=== PATIENT | female | born 1945 | race Caucasian/White ===

== ENCOUNTER 2016-10-01 08:51 | Outpatient (RCR) ==
[2015-06-15 09:19] VITALS: BMI 28.9
[2016-10-26 09:39] VITALS: BP 118/64
== END 2016-10-26 ==
LOC: CAR.REHAB 08:51
PROVIDERS: ATTEND Internal Medicine
DX: I25.10 Atherosclerotic heart disease of native coronary artery without angina pectoris (principal); J44.9 Chronic obstructive pulmonary disease, unspecified
CPT/HCPCS: 93797

== ENCOUNTER 2016-10-27 07:00 | Outpatient (RCR) ==
[2015-06-15 09:19] VITALS: BMI 28.9
[2016-11-23 11:32] VITALS: BP 122/56
== END 2016-11-25 ==
LOC: CAR.REHAB 07:00
PROVIDERS: ATTEND Internal Medicine
DX: I25.10 Atherosclerotic heart disease of native coronary artery without angina pectoris (principal); J44.9 Chronic obstructive pulmonary disease, unspecified
CPT/HCPCS: 93797

== ENCOUNTER 2016-11-26 07:51 | Outpatient (RCR) ==
[2015-06-15 09:19] VITALS: BMI 28.9
[2016-12-21 11:52] VITALS: BP 126/58
== END 2016-12-26 ==
LOC: CAR.REHAB 07:51
PROVIDERS: ATTEND Internal Medicine
DX: I25.10 Atherosclerotic heart disease of native coronary artery without angina pectoris (principal); J44.9 Chronic obstructive pulmonary disease, unspecified
CPT/HCPCS: 93797

== ENCOUNTER 2016-12-27 10:48 | Outpatient (RCR) ==
[2015-06-15 09:19] VITALS: BMI 28.9
[2017-01-21 11:28] VITALS: BP 126/56
== END 2017-01-25 ==
LOC: CAR.REHAB 10:48
PROVIDERS: ATTEND Internal Medicine
DX: I25.10 Atherosclerotic heart disease of native coronary artery without angina pectoris (principal); J44.9 Chronic obstructive pulmonary disease, unspecified
CPT/HCPCS: 93797

== ENCOUNTER 2017-01-28 07:09 | Outpatient (RCR) ==
[2015-06-15 09:19] VITALS: BMI 28.9
[2017-02-25 11:55] VITALS: BP 108/52
== END 2017-02-25 ==
LOC: CAR.REHAB 07:09
PROVIDERS: ATTEND Internal Medicine
DX: I25.10 Atherosclerotic heart disease of native coronary artery without angina pectoris (principal); J44.9 Chronic obstructive pulmonary disease, unspecified
CPT/HCPCS: 93797

== ENCOUNTER 2017-02-26 08:43 | Outpatient (RCR) ==
[2015-06-15 09:19] VITALS: BMI 28.9
[2017-03-08 12:29] VITALS: BP 126/64
== END 2017-03-28 ==
LOC: CAR.REHAB 08:43
PROVIDERS: ATTEND Internal Medicine
DX: I25.10 Atherosclerotic heart disease of native coronary artery without angina pectoris (principal); J44.9 Chronic obstructive pulmonary disease, unspecified
CPT/HCPCS: 93797

== ENCOUNTER 2017-03-29 07:36 | Outpatient (RCR) ==
[2015-06-15 09:19] VITALS: BMI 28.9
== END 2017-04-22 09:46 | disposition home or self-care (01) ==
LOC: CAR.REHAB 07:36
PROVIDERS: ATTEND Internal Medicine
DX: I25.10 Atherosclerotic heart disease of native coronary artery without angina pectoris (principal); Z95.5 Presence of coronary angioplasty implant and graft

== ENCOUNTER 2017-04-10 11:11 | Outpatient (CLI) | payer OTHER ==
[2015-06-15 09:19] VITALS: BMI 28.9
--- NOTE | 2017-04-10 11:50 | DI ---
EXAM: CHEST FRONTAL AND LATERAL VIEWS HISTORY: Chronic obstructive pulmonary disease. COMPARISON: None FINDINGS: Heart size is within normal limits. There is at least mild aortic atherosclerosis. Blackmon otomy wires are noted. There are scattered calcifications suggesting old granulomatous disease. No a cute infiltrates are seen. Mild hyperinflation. No vascular congestion. There is no consolidation, visible pleural fluid or pneumothorax. Bones reveal no acute fracture. IMPRESSION: Mild hyperinflation. No acute cardiopulmonary process.
== END 2017-04-10 11:12 | disposition home or self-care (01) ==
LOC: RAD 11:11
PROVIDERS: ATTEND Internal Medicine
DX: J44.9 Chronic obstructive pulmonary disease, unspecified (principal)

== ENCOUNTER 2017-06-25 06:29 | Outpatient (CLI) ==
[2015-06-15 09:19] VITALS: BMI 28.9
--- NOTE | 2017-06-26 13:41 | ECHO2D ---
Date of Exam: 06/25/17 Ordering Physician: GRABIEL ALEGRIA Room #: OP Reason for Echo: CHEST PAIN, COPD, SOB, CAD M-Mode Normal Adult Results LV Dimensions Normal Adult Results AoV Opening excursions >1.6 >1.6 LVEDD-base- 3.5-5.8 5.3 Ao root dimensions 2.0-3.7 3.3 LVESD-base- 3.1-4.6 L. Atrium dimensions 1.9-3.8 4.6 Post. Wall thickness 0.8-1.1 1.4 IV septum (thickness) 0.7-1.2 1.3 Post. Wall excursion 0.72-1.3 NORMAL Septal motion NORMAL Systolic motion R. Ventricular cavity 1.5-2.0 NORMAL LVEF 60% 55% Paradoxical septal wall motion NORMAL 2-D : 2-D M Mode Echocardiogram was performed using apical four chamber and left parasternal long and short axis views. Mitral, tricuspid and aortic valves appear to be normal. Contractility of the left ventricle seems to be normal, so is the cavity size. Enlarged left atrial cavity. Aortic root appears to be normal. There is no pericardial effusion. There is no thrombus noted in the left ventricular or left aortic cavity. No mitral valve prolapse noted. M-MODE: MV: NORMAL AV: NORMAL TV: NORMAL PV: CHAMBER SIZE: ENLARGED LEFT ATRIAL CAVITY WALL MOTION: NORMAL PERICARDIUM: NORMAL INTERPRETATION: 1. LEFT VENTRICULAR HYPERTROPHY WITH ENLARGED LEFT ATRIAL CAVITY 2. NORMAL LEFT VENTRICULAR CONTRACTILITY 3. NORMAL VALVES 4. MODERATE MITRAL REGURGITATION MTDD
== END 2017-06-25 06:30 | disposition home or self-care (01) ==
LOC: CAR 06:29
PROVIDERS: ATTEND Internal Medicine
DX: R06.02 Shortness of breath (principal); J44.9 Chronic obstructive pulmonary disease, unspecified; I20.9 Angina pectoris, unspecified; I10 Essential (primary) hypertension
CPT/HCPCS: 93005; 93010

== ENCOUNTER 2017-06-26 06:25 | Outpatient (CLI) ==
[2015-06-15 09:19] VITALS: BMI 28.9
[2017-06-26] MEDS ORDERED: DOBUTAMINE 250 ML IV ONE (07:30)
[2017-06-26] MEDS ORDERED: ATROPINE SULFATE PFS ONE (07:30)
--- NOTE | 2017-06-26 11:12 | NM ---
Cardiac Stress Test HISTORY: Angina, shortness of breath, chronic obstructive pulmonary disease, hypertension. Post bypas s 3 years ago. COMPARISON: None of this type. TECHNIQUE: Resting: The patient was injected with 3.5 millicuries of 99m technetium Sestamibi (Cardiolite) intr avenously after which a "resting" SPECT study of the heart was performed. Stress: The patient was stressed pharmacologically with dobutamine and at the appropriate time injec boris with 24.6 millicuries of 99m technetium Sestamibi (Cardiolite) after which a "stress" SPECT study of the heart was performed. Gated images of the heart were also obtained to assess wall motion and c alculate ejection fraction. For details of the stress protocol employed, reference is made to the se [place] report of the performing physician. FINDINGS: The stress perfusion images demonstrate a generally uniform distribution of activity in th e left ventricular myocardium. There is a small region of minimally decreased activity in the distal lateral wall near the apex which appears predominantly fixed. The resting perfusion images demonstra te no evidence of significant redistribution/ischemia. The left ventricular ejection fraction (LVEF) is 69%. The left ventricular wall motion is within normal limits. IMPRESSION: 1. Left ventricular myocardial perfusion demonstrates no evidence of significant ischemia. 2. The left ventricular ejection fraction (LVEF) is 69%. 3. The left ventricular wall motion is within normal limits.
--- NOTE | 2017-06-27 10:51 | DOBSTECHO ---
Ordering Physician: GRABIEL ALEGRIA Date of Test: 06/26/17 Reason for Examination: CHEST PAIN, COPD Current Medications: LISINOPRIL, METOPROLOL, PLAVIX, ASA, ATIVAN Height: 62" Weight: 166 LBS Target Heart Rate: 126/149 ST Segment Stage Time HR BPM BP mmhg Rhythm +/- Up Down Comments/Symptoms Control Sitting 42 152/78 SR X NONE Dobutamine 250mg/D5W 5cmg/KG/mn 10cmg/KG/mn 3" 54 180/74 SR X .25 CC ATROPINE 15cmg/KG/mn 1:58 100 SR X 20cmg/KG/mn 25cmg/KG/mn 30cmg/KG/mn 35cmg/KG/mn 40cmg/KG/mn Time: 2" HR B/P Time: 6" HR B/P Time: HR B/P Recovery 77 180/88 Recovery 62 Recovery Total Time: 4:58 Maximum Heart Rate Reached: 100 Interpretation: 97% OXYGEN SATURATION ON ROOM AIR AT REST 1. NO ISCHEMIC ST-T WAVE CHANGES FROM HEART RATE 42 BPM TO 100 BPM 2. NO CHEST PAIN OR DISCOMFORT 3. NORMAL LEFT VENTRICULAR CONTRACTILITY--RESTING AND WITH DOBUTAMINE INFUSION 4. SESTAMIBI TO FOLLOW MTDD
--- NOTE | 2017-06-27 10:53 | ECHOSTRESS ---
Date of Exam: 06/26/17 Ordering Physician: GRABIEL ALEGRIA Reason for Echo: CHEST PAIN, DOBUTAMINE STRESS --NO ISCHEMIA M-Mode Normal Adult Results LV Dimensions Normal Adult Results AoV Opening excursions >1.6 LVEDD-base- 3.5-5.8 Ao root dimensions 2.0-3.7 LVESD-base- 3.1-4.6 L. Atrium dimensions 1.9-3.8 Post. Wall thickness 0.8-1.1 IV septum (thickness) 0.7-1.2 Post. Wall excursion 0.72-1.3 Septal motion Systolic motion R. Ventricular cavity 1.5-2.0 LVEF 60% Paradoxical septal wall motion 2-D: NORMAL LEFT VENTRICULAR CONTRACTILITY--RESTING AND WITH DOBUTAMINE INFUSION M-MODE: MV: AV: TV: PV: CHAMBER SIZE: WALL MOTION: NORMAL LEFT VENTRICULAR CONTRACTILITY--RESTING AND WITH DOBUTAMINE INFUSION PERICARDIUM: INTERPRETATION: 1. NORMAL LEFT VENTRICULAR CONTRACTILITY--RESTING AND WITH DOBUTAMINE INFUSION SESTAMIBI TO FOLLOW MTDD
== END 2017-06-26 06:26 | disposition home or self-care (01) ==
LOC: CAR 06:25
PROVIDERS: ATTEND Internal Medicine
DX: R06.02 Shortness of breath (principal); J44.9 Chronic obstructive pulmonary disease, unspecified; I10 Essential (primary) hypertension; I20.9 Angina pectoris, unspecified

== ENCOUNTER 2017-11-14 08:26 | Outpatient (CLI) | payer OTHER ==
[2015-06-15 09:19] VITALS: BMI 28.9
--- NOTE | 2017-11-15 11:29 | MAMMO ---
EXAM: Digital screening mammogram with tomosynthesis HISTORY: Screening COMPARISON: 06/09/2014 FINDINGS: Digital MLO and CC views of the right and left breast were performed. Tomosynthesis was p erformed. Computer aided detection utilized. There are scattered fibroglandular densities. There is no evidence for mass, asymmetry, distortion, or suspicious calcifications in either breast. IMPRESSION: 1. No evidence of malignancy in the right or left breast. 2. Annual screening mammogram is recommended in one year. BIRADS category 1, negative examination
== END 2017-11-14 08:27 | disposition home or self-care (01) ==
LOC: RAD 08:26
PROVIDERS: ATTEND Internal Medicine
DX: Z12.31 Encounter for screening mammogram for malignant neoplasm of breast (principal)
CPT/HCPCS: 77067

== ENCOUNTER 2018-11-27 04:12 | Emergency (ER) | payer OTHER ==
[2018-11-27 04:26] VITALS: BP 156/89; TEMP 100.2; BMI 31.9
--- NOTE | 2018-11-27 04:48 | ED.PDOC ---
General ED Provider: Dr. THUY BRADSHAW-ER Chief Complaint: Respiratory Complaint Stated Complaint: christianne got sinus and allergy troubles Time Seen by Physician: 04:15 Mode of Arrival: Walk-In Information Source: Patient Exam Limitations: No limitations Primary Care Provider: GRABIEL ALEGRIA Nursing and Triage Documentation Reviewed and Agree: Yes Does patient meet sepsis criteria?: No System Inflammatory Response Syndrome: Not Applicable Sepsis Protocol: For patient's 13 years and over: Temp is 96.8 and below OR 101 and greater Pulse >90 BPM Resp >20/minute Acutely Altered Mental Status Are patient's symptoms suggestive of a new infection, such as: -Pneumonia -Skin, Soft Tissue -Endocarditis -UTI -Bone, Joint Infection -Implantable Device -Acute Abdominal Infection -Wound Infection -Meningitis -Blood Stream Catheter Infection -Unknown EENT Complaint Exam - Nasal Complaint/Exam Onset/Duration: 2 days Symptoms Are: Still present Timing: Constant Initial Severity: Mild Current Severity: Mild Location: Bilateral Aggravating: Reports: URI Associated Signs and Symptoms: Reports: Nasal congestion, Sinus pain, Nasal discharge Foreign Body Present: No Differential Diagnoses: Allergic Rhinitis, Sinusitis Review of Systems - Review Of Systems Constitutional: Reports: No symptoms Eyes: Reports: No symptoms Ears, Nose, Mouth, Throat: Reports: Nose discharge Respiratory: Reports: Cough Cardiac: Reports: No symptoms GI: Reports: No symptoms : Reports: No symptoms Musculoskeletal: Reports: No symptoms Skin: Reports: No symptoms Neurological: Reports: No symptoms Endocrine: Reports: No symptoms Hematologic/Lymphatic: Reports: No symptoms All Other Systems: Reviewed and Negative Past Medical History - Past Medical History Previously Healthy: Yes Endocrine: Reports: Unknown Cardiovascular: Reports: Unknown Respiratory: Reports: Unknown Hematological: Reports: Unknown Gastrointestinal: Reports: Unknown Genitourinary: Reports: Unknown Neuro/Psych: Reports: Unknown Musculoskeletal: Reports: Unknown Cancer: Reports: Unknown Last Menstrual Period: HAS HAD A HYSTERECTOMY - Surgical History General Surgical History: Reports: Unknown - Family History Family History: Reports: Unknown - Social History Smoking Status: Current every day smoker, Heavy tobacco smoker Hx Substance Use: No Alcohol Screening: Occasionally - Immunizations Tetanus Shot up to Date: (UNKNOWN) Physical Exam - Physical Exam Appearance: Well-appearing, No pain distress, Well-nourished Eyes: WATSON, EOMI, Conjunctiva clear ENT: Rhinorrhea Neck: Supple Respiratory: Airway patent, Breath sounds clear, Breath sounds equal, Respirations nonlabored Cardiovascular: RRR, Pulses normal, No rub, No murmur GI/: Soft, Nontender, No masses, Bowel sounds normal, No Organomegaly Musculoskeletal: Normal strength, ROM intact, No edema, No calf tenderness Skin: Warm, Dry, Normal color Neurological: Sensation intact, Motor intact, Reflexes intact, Cranial nerves intact, Alert, Oriented Psychiatric: Affect appropriate, Mood appropriate Critical Care Note - Critical Care Note Total Time (mins): 0 Course - Course Vital Signs: Temp Pulse Resp BP Pulse Ox 11/27/18 04:13 100.2 F H 77 18 156/89 H 95 Departure - Departure Time of Disposition: 04:47 Disposition: HOME SELF-CARE Discharge Problem: Rhinitis Qualifiers: Rhinitis type: other Qualified Code(s): J31.0 - Chronic rhinitis Sinusitis Qualifiers: Sinusitis location: other Chronicity: acute Recurrence: non-recurrent Qualified Code(s): J01.80 - Other acute sinusitis Instructions: Rhinosinusitis (ED) Condition: Good Pt referred to PMD for follow-up: Yes IPMP verified?: No Additional Instructions: omnicef 300mg bid x 10 days ..medrol dose pack. astelin 2 puffs each nostril bid , flonase one puff each nostril bid///--f.u with pcp if not better in a few days Allergies/Adverse Reactions: Allergies No Known Allergies Allergy (Verified 11/27/18 04:25) Home Medications: Ambulatory Orders Aspirin [Aspirin Chewable] 81 mg PO DAILY 02/09/13 Clopidogrel Bisulfate [Plavix] 75 mg PO DAILY 02/09/13 Lisinopril [Zestril] 20 mg PO DAILY 02/09/13 Isosorbide Mononitrate [Isosorbide Mononitrate ER] 30 mg PO DAILY 11/27/18 Lorazepam [Ativan] 1 mg PO BID PRN 11/27/18 Metoprolol Tartrate 25 mg PO DAILY 11/27/18 Rosuvastatin Calcium [Crestor] 10 mg PO BEDTIME 11/27/18 Disposition Discussed With: Patient
== END 2018-11-27 04:55 | disposition home or self-care (01) ==
LOC: ED 04:12
DX: J31.0 Chronic rhinitis (principal); J01.80 Other acute sinusitis; F17.210 Nicotine dependence, cigarettes, uncomplicated
CPT/HCPCS: 99282